=== PATIENT | male | born 1995 | race Caucasian/White ===

== ENCOUNTER 2018-08-22 16:10 | Emergency (ER) | payer OTHER ==
[~2018-08-22] VITALS: Ht 170.2 cm; Wt 83.9 kg
[2018-08-22 16:17] VITALS: BP 134/62
--- NOTE | 2018-08-22 16:21 | NUR ---
PT. ARRIVED TO ED DUE TO LEFT FOOT PAIN, SWELLING, REDNESS X TODAY DENIES INJURY. 06/30 PAIN. PEDAL PULSE PRESENT, CAP REFILL LESS THAN 3 SEC. NO DEFORMITY NOTED. SENSATION INTACT. PT STATES " I WOKE UP AND MY FOOT WAS HURTING A LOT". ER MD NOTIFIED. SAFETY PRECAUTIONS IMPLEMENTED. WILL CONTINUE TO MONITOR.
[2018-08-22] MEDS ORDERED: KETOROLAC 60 MG/2 ML VIAL IM ONE (17:10)
[2018-08-22 17:27] VITALS: BP 128/64
--- NOTE | 2018-08-22 17:27 | NUR ---
Patient discharged with v/s stable. Written and verbal after care instructions given and explained. Patient alert, oriented and verbalized understanding of instructions. Ambulatory with steady gait. All questions addressed prior to discharge. ID band removed. Patient advised to follow up with PMD. Rx of MOTRIN 800MG, BACTRIM DS, AND KEFLEX 500 MG given. Patient educated on indication of medication including possible reaction and side effects. Opportunity to ask questions provided and answered.
== END 2018-08-22 17:25 | disposition home or self-care (01) ==
LOC: MED 16:10
DX: L03.116 Cellulitis of left lower limb (principal); F17.210 Nicotine dependence, cigarettes, uncomplicated
CPT/HCPCS: 96372; 99283; J1885

== ENCOUNTER 2019-11-22 21:43 | Emergency (ER) | payer OTHER ==
[~2019-11-22] VITALS: Ht 170.2 cm; Wt 72.6 kg
[2019-11-22 21:50] VITALS: BP 102/60
--- NOTE | 2019-11-22 21:50 | NUR ---
TO LOBBY A/W BED AMBULATORY
--- NOTE | 2019-11-22 22:10 | NUR ---
PT AMBULATED TO BED 9.
--- NOTE | 2019-11-22 22:30 | NUR ---
PT WENT TO XRAY VIA WHEELCHAIR
--- NOTE | 2019-11-22 22:35 | NUR ---
23 Y/O MALE C/O INTERMITTENT HEADACHE X 6 DAYS BUT THIS MORNING AROUND 4AM. THE HEADACHE AWOKE PT FROM SLEEPING AND HAS YET TO SUBSIDE AND FEEL LIKE A THROBBING PAIN. PAIN 8/10. PT STATES DID NOT TAKE ANY MEDICATION FOR PAIN. PT DENIES TRAUMA. COUGHING MAKES PAIN WORSE. PT STATES HAD NEAR SYNCOPAL EPISODES TODAY. PT ALSO STATES LEFT NECK/SHOULDER PAIN.PT STATES PRIOR TO THE HEADACHE PT EXPERIENCES PARTIAL VISION LOSS BUT DID NOT EXPERIENCE ANY VISION LOSS TODAY. DENIES N/V/D; SKIN IS PINK/WARM/DRY; AAOX4 WITH EVEN AND STEADY GAIT; PT DENIES ANY FEVER, CP, SOB, OR COUGH AT THIS TIME; VSS. BED LOW AND LOCKED WIT 1 SIDERAIL UP. MEDICAL HX: SEIZURE (PT STATES LAST SEIZURE WAS IN 2019) CLAUDIA
--- NOTE | 2019-11-22 22:43 | NUR ---
PT RETURNED FROM XRAY VIA WHEELCHAIR, STABLE,
--- NOTE | 2019-11-22 22:48 | NUR ---
Dr. Forde examining patient.
[2019-11-22] MEDS ORDERED: NACL 0.9% 1,000 ML IV ONE (22:50)
[2019-11-22] MEDS ORDERED: KETOROLAC 30 MG/ML VIAL IVP ONE (23:05)
[2019-11-22 23:19] LABS: BASOPHILS # (AUTO) 0.1 K/uL (0.00-0.22); BASOPHILS % (AUTO) 1.3 % (0.0-2.0); EOSINOPHILS # (AUTO) 0.3 K/uL (0-0.4); EOSINOPHILS % (AUTO) 5.2 % (0.0-4.0); HEMOGLOBIN 12.7 g/dL (12.0-18.0); LYMPHOCYTES # (AUTO) 2.5 K/uL (2.0-11.5); LYMPHOCYTES % (AUTO) 42.6 % (20.5-51.1); MEAN CORPUSCULAR HEMOGLOBIN 22 pg (27-31); MEAN CORPUSCULAR HGB CONC 33 g/dL (33-37); MEAN CORPUSCULAR VOLUME 66.7 fL (80-94); MONOCYTES # (AUTO) 0.8 K/uL (0.8-1.0); MONOCYTES % (AUTO) 13.4 % (1.7-9.3); NEUTROPHILS # (AUTO) 2.2 K/uL (1.8-7.7); NEUTROPHILS % (AUTO) 37.5 % (42.2-75.2); PLATELET COUNT (AUTO) 266 K/uL (140-450); RED BLOOD CELL COUNT(AUTO) 5.69 MIL/uL (4.20-6.10); RED CELL DISTRIBUTION WIDTH 17.7 % (11.6-13.7); WHITE BLOOD COUNT (AUTO) 5.8 K/uL (4.8-10.8)
--- NOTE | 2019-11-22 23:28 | NUR ---
Edith ricks in [facility] - 11/22/19 at 2328 by KILEY PT TAKEN TO CT
--- NOTE | 2019-11-22 23:28 | NUR ---
PT GOING TO RAD BY WHEEL CHAIR
[2019-11-22 23:32] LABS: ALBUMIN 3.9 g/dL (3.4-5.0); ANION GAP 9.9 (8-16); CARBON DIOXIDE 29.8 mmol/L (21-32); CREATININE 0.9 mg/dL (0.6-1.3); POTASSIUM 3.7 mmol/L (3.5-5.1); TOTAL BILIRUBIN 0.3 mg/dL (0.0-1.0)
--- NOTE | 2019-11-22 23:47 | NUR ---
PT RETURNED FROM CT VIA WHEELCHAIR. PT STABLE, POSITION OF COMFORT, VSS. BED LOW AND LOCKED AND 1 SIDERAIL UP
[2019-11-23] MEDS ORDERED: MORPHINE SULFATE 2 MG/ML SYR IVP ONE (00:10)
--- NOTE | 2019-11-23 00:34 | NUR ---
PT ABLE TO WALK TO RESTROOM. GIRLFRIEND AT BEDSIDE AND WILL DRIVE PT HOME.
[2019-11-23 00:35] VITALS: BP 94/50
--- NOTE | 2019-11-23 00:35 | NUR ---
Patient discharged with v/s stable. Written and verbal after care instructions given and explained. Patient alert, oriented and verbalized understanding of instructions. Ambulatory with steady gait. All questions addressed prior to discharge. ID band removed. Patient advised to follow up with PMD. Rx of ROBAXIN, TRAMADOL, MOTRIN given. Patient educated on indication of medication including possible reaction and side effects. Opportunity to ask questions provided and answered.
--- NOTE | 2019-11-24 13:37 | NUR ---
Late entry. Confirmed with RN that 0.9 NS IV completed at [id number]
== END 2019-11-23 00:35 | disposition home or self-care (01) ==
LOC: MED 21:43
DX: S16.1XXA Strain of muscle, fascia and tendon at neck level, initial encounter (principal); M25.512 Pain in left shoulder; R42 Dizziness and giddiness; X58.XXXA Exposure to other specified factors, initial encounter; Y93.89 Activity, other specified; Y92.89 Other specified places as the place of occurrence of the external cause; Y99.8 Other external cause status
CPT/HCPCS: 36415; 70450; 72040; 72125; 80053; 85025; 96361; 96374; 96375; 99285; J1885; J2270; J7030